=== PATIENT | male | born 1945 | race Caucasian/White ===

== ENCOUNTER 2017-02-19 07:39 | Day surgery (SDC) | payer MEDICARE ==
[2017-02-13 15:46] VITALS: BMI 26.2
[~2017-02-19 07:39] MED LIST: LACTATED RINGERS 1,000 ML IV SCH
[2017-02-19 08:06] VITALS: TEMP 97.8
[2017-02-19] MEDS ORDERED: LIDOCAINE 1% 20 ML VIAL (10MG/ML) FOR IV START INTRADERMA ONE (08:06)
[2017-02-19] MEDS ORDERED: PROPOFOL 10 MG/ML 20 ML VIAL IV ONE (08:29)
[2017-02-19] MEDS ORDERED: LIDOCAINE 1% INJ 10MG/ML (20 ML MDV) ONE (08:29)
--- NOTE | 2017-02-19 08:37 | P.GSHP ---
History of Present Illness H&P Date: 02/19/17 Chief Complaint: Colon cancer This is a 71-year-old male who has. History of colon cancer. Patient presents today for colonoscopy. He's had a previous low anterior section. - Constitutional Constitutional: Reports as per HPI Past Medical History Past Medical History: Cancer, GERD/Reflux, Hyperlipidemia, Hypertension, Osteoarthritis (OA), Prostate Disorder, Sleep Apnea/CPAP/BIPAP Additional Past Medical History / Comment(s): CHRONIC FATIGUE SYNDROME. COLON POLYPS. MELANOMA, SKIN CA, COLON CA DX ,CONSTIPATION, History of Any Multi-Drug Resistant Organisms: None Reported Past Surgical History: Bowel Resection, Orthopedic Surgery Additional Past Surgical History / Comment(s): MELANOMA REMOVED RIGHT SHOULDER. RIGHT INNER EAR RECONSTRUCTION. BILATERAL ROTATOR CUFF REPAIR. laparoscopic left colectomy with lysis of adhesions 02-23-15, PORT A CATH INSERTED AND REMOVED Past Anesthesia/Blood Transfusion Reactions: No Reported Reaction Additional Past Anesthesia/Blood Transfusion Reaction / Comment(s): NEVER HAS HAD A BLOOD TRANSFUSION Past Psychological History: No Psychological Hx Reported Smoking Status: Never smoker Past Alcohol Use History: Rare Past Drug Use History: None Reported - Past Family History Mother Family Medical History: Deep Vein Thrombosis (DVT) Father Family Medical History: Cancer Additional Family Medical History / Comment(s): LUNG CA Medications and Allergies Home Medications Medication Instructions Recorded Confirmed Type Multivitamins, Thera [Multivitamin] 1 tab PO DAILY 02/05/15 02/13/17 History Omeprazole [PriLOSEC] 20 mg PO AC-BID 02/05/15 02/13/17 History Simvastatin [Zocor] 40 mg PO HS 02/05/15 02/13/17 History Tamsulosin [Flomax] 0.4 mg PO HS 02/05/15 02/13/17 History amLODIPine BESYLATE/BENAZEPRIL 1 tab PO QAM 02/05/15 02/13/17 History [Amlodipine-Benazepril 5-10 mg] buPROPion SR [Wellbutrin Sr] 150 mg PO BID 02/05/15 02/13/17 History Indomethacin [Indocin] 50 mg PO BID 02/08/15 02/13/17 History Gabapentin [Neurontin] 200 mg PO BID 11/02/15 02/13/17 History Lactulose 15 ml PO DIRECTED PRN 11/02/15 02/13/17 History Cholecalciferol [Vitamin D3] 4,000 unit PO DAILY 02/13/17 02/13/17 History Cyanocobalamin (Vitamin B-12) 1,000 mcg PO DAILY 02/13/17 02/13/17 History [Vitamin B-12] Donepezil HCl [Aricept] 5 mg PO DAILY 02/13/17 02/13/17 History Allergies Allergy/AdvReac Type Severity Reaction Status Date / Time No Known Allergies Allergy Verified 02/19/17 07:49 Surgical - Exam Vital Signs Temp Pulse Resp BP Pulse Ox 97.8 F 79 16 123/67 98 02/19/17 08:05 02/19/17 08:05 02/19/17 08:05 02/19/17 08:05 02/19/17 08:05 - General well developed, no distress - Eyes PERRL - ENT normal pinna - Neck no masses - Respiratory normal expansion - Cardiovascular Rhythm: regular - Abdomen Abdomen: soft, non tender Assessment and Plan Plan: History of colon cancer. We'll perform colonoscopy.
--- NOTE | 2017-02-19 08:48 | P.OP ---
Date of Procedure: 02/19/17 Preoperative Diagnosis: History of colon cancer Postoperative Diagnosis: Normal colon status post low anterior resection Procedure(s) Performed: Colonoscopy Anesthesia: MAC Surgeon: Alber Shah Pathology: none sent Condition: stable Disposition: PACU Description of Procedure: PROCEDURE: The patient was placed on the endoscopy table in the lateral position. Digital rectal examination was performed which revealed no abnormalities. The prostate was symmetrical without nodules. Flexible colonoscope was then placed in the patient's anus and passed throughout the entire colon. The ileocecal valve was visualized. The cecum, ascending, transverse, descending colon was normal. The patient had a previous colorectal anastomosis. The anastomosis was without evidence of inflammation. There is no evidence of any recurrent tumors. The rectum appeared normal. Scope was withdrawn for patient.
[2017-02-19 08:56] VITALS: RESP 18
[2017-02-19 09:14] VITALS: BP 109/73; PULSE 69
== END 2017-02-19 09:27 | disposition home or self-care (01) ==
LOC: ORWHC2ENDO 07:39
PROVIDERS: ATTEND Surgery
DX: Z12.11 Encounter for screening for malignant neoplasm of colon (principal); Z85.038 Personal history of other malignant neoplasm of large intestine; Z90.49 Acquired absence of other specified parts of digestive tract; K21.9 Gastro-esophageal reflux disease without esophagitis; E78.5 Hyperlipidemia, unspecified; I10 Essential (primary) hypertension; M19.90 Unspecified osteoarthritis, unspecified site; N42.9 Disorder of prostate, unspecified; G47.30 Sleep apnea, unspecified; Z85.820 Personal history of malignant melanoma of skin; Z79.899 Other long term (current) drug therapy
CPT/HCPCS: J2001; J2704; G0105; 45378

== ENCOUNTER → 2017-10-22 | Outpatient (CLI) | payer MEDICARE ==
[2017-10-22 09:16] LABS: Blood Urea Nitrogen 21 mg/dL (9-20)
--- NOTE | 2017-10-22 10:26 | CT ---
EXAMINATION TYPE: CT abdomen pelvis w con DATE OF EXAM: 10/22/2017 COMPARISON: 10/22/2016 HISTORY: 72 year-old male follow-up of colon CA, last chemotherapy 09/05/2015 TECHNIQUE: Contiguous axial scanning of the abdomen and pelvis following administration of 100 ml Omn ipaque 300 IV contrast. Delayed images through the kidneys and coronal/sagittal reconstructions perf ormed. CT DLP: 1278.0 mGycm Automated exposure control for dose reduction was used. FINDINGS: Heart is normal size without pericardial effusion. Mild dependent atelectasis posterior lung bases. There is some subtle 8 mm nodularity along the left lateral wall of the distal esophagus, axial image 8 and coronal image 49 which could represent some mucosal redundancy. Close follow-up recommended ve rsus direct visualization. No focal liver lesion or biliary ductal dilatation. Portal venous system is patent. Redemonstrated 2 cm gallstone. No abnormal gallbladder distention. Adrenal glands, kidneys, spleen, and pancreas within normal limits. No dilated small bowel, free fluid, or free air. No mesenteric or retroperitoneal lymphadenopathy. Oral contrast progressed to the hepatic flexure. There is moderate stool burden with a evidence of co lonic resection and re-anastomosis along the proximal sigmoid. No pericolonic inflammatory change. 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 This is unchanged from 10/22/2016. Refer to axial image 34 and coronal image 45. Bladder is urine distended. Prostate gland is enlarged measuring 5.7 cm wide with heterogeneous enhan cement. More focal area of enhancement along the left paramedian peripheral zone measuring 1.1 cm rufus teo 8 mm, previously. No abnormal fluid collection in the pelvis or pelvic lymphadenopathy. Bones: Patchy areas of sclerosis within the bilateral pubic bones. Heterogeneous sclerosis within the right iliac bone are unchanged. Degenerative changes at both hips and advanced degenerative changes through out the spine with a grade 2 anterolisthesis at L4-L5 secondary to hypertrophic facet arthropathy. En dplate sclerosis at L2-L3 on a degenerative basis. DISH within the lower thoracic spine. No osseous d estructive process seen. Baastrup's disease. IMPRESSION: 1. EVIDENCE OF PRIOR RESECTION AND REANASTOMOSIS ALONG THE PROXIMAL SIGMOID. THERE IS MODERATE STOOL BURDEN. NO SUSPICIOUS MASS OR LYMPHADENOPATHY TO SUGGEST METASTATIC DISEASE. 2. STABLE PATCHY SCLEROSIS WITHIN THE PUBIC BONES AND RIGHT ILIAC BONE. GIVEN THE RELATIVE LONG-TERM STABILITY, FINDINGS SUGGEST TREATED OSSEOUS METASTASES RATHER THAN ACTIVE METASTATIC DISEASE. CLINICA LLY CORRELATE. 3. A SUBTLE 8 MM AREA OF NODULARITY ALONG THE LEFT LATERAL WALL OF THE DISTAL ESOPHAGUS COULD REPRESE NT SOME MUCOSAL REDUNDANCY. CLOSE FOLLOW-UP VERSUS DIRECT VISUALIZATION TO EXCLUDE A SMALL EARLY NEOP LASM. 4. HETEROGENEOUSLY ENHANCING AND ENLARGED PROSTATE GLAND COULD REFLECT BPH. HOWEVER, GIVEN MORE FOCAL 1.1 CM ENHANCEMENT IN THE LEFT PARAMEDIAN PERIPHERAL ZONE, CORRELATE TO EXCLUDE AN INDOLENT FOCUS OF PROSTATE CANCER. 5. 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
== END | disposition home or self-care (01) ==
LOC: RADCTMAIN 08:36
PROVIDERS: ATTEND Internal Medicine Hematology & Oncology
DX: C18.7 Malignant neoplasm of sigmoid colon (principal); M89.8X8 Other specified disorders of bone, other site; N40.0 Benign prostatic hyperplasia without lower urinary tract symptoms; K80.20 Calculus of gallbladder without cholecystitis without obstruction; I72.2 Aneurysm of renal artery
CPT/HCPCS: 82565; 84520; 74177; 36415; Q9967

== ENCOUNTER 2017-11-03 06:54 | Day surgery (SDC) | payer MEDICARE ==
[2017-10-30 09:15] VITALS: BMI 27.1
[~2017-11-03 06:54] MED LIST changes: +LIDOCAINE 1% 20 ML VIAL (10MG/ML) FOR IV START INTRADERMA PRN
[2017-11-03 07:13] VITALS: TEMP 97.7
[2017-11-03] MEDS ORDERED: LACTATED RINGERS 1,000 ML IV ONE (07:13)
[2017-11-03] MEDS ORDERED: LIDOCAINE 1% INJ 10MG/ML (20 ML MDV) ONE (07:37)
[2017-11-03] MEDS ORDERED: PROPOFOL 10 MG/ML 20 ML VIAL IV ONE (07:37)
--- NOTE | 2017-11-03 07:54 | P.GSHP ---
History of Present Illness H&P Date: 11/03/17 Chief Complaint: Possible esophagitis Asst. 72-year-old male with a history of colon cancer. Patient underwent routine screening CAT scan. He's found to have nodularity of the distal esophagus. He presents today for direct visualization of his esophagus. Past Medical History Past Medical History: Cancer, GERD/Reflux, Hyperlipidemia, Hypertension, Neurologic Disorder, Osteoarthritis (OA), Prostate Disorder, Sleep Apnea/CPAP/ BIPAP Additional Past Medical History / Comment(s): CHRONIC FATIGUE SYNDROME, COLON POLYPS, HX OF COLON CANCER (RESECTION & CHEMOTHERAPY 2014), MELANOMA SKIN CA, CONSTIPATION, ENLARGED PROSTATE., NEUROPATHY IN FINGERS & FEET. History of Any Multi-Drug Resistant Organisms: None Reported Past Surgical History: Bowel Resection, Orthopedic Surgery Additional Past Surgical History / Comment(s): MELANOMA RIGHT SHOULDER. RIGHT INNER EAR RECONSTRUCTION. BILATERAL ROTATOR CUFF REPAIR. laparoscopic left colectomy with lysis of adhesions 02-23-15, PORT A CATH INSERTED AND REMOVED Past Anesthesia/Blood Transfusion Reactions: No Reported Reaction Additional Past Anesthesia/Blood Transfusion Reaction / Comment(s): . Past Psychological History: No Psychological Hx Reported Smoking Status: Never smoker Past Alcohol Use History: None Reported Past Drug Use History: None Reported - Past Family History Mother Family Medical History: Deep Vein Thrombosis (DVT) Father Family Medical History: Cancer Additional Family Medical History / Comment(s): LUNG CA Medications and Allergies Home Medications Medication Instructions Recorded Confirmed Type Multivitamins, Thera [Multivitamin] 1 tab PO DAILY 02/05/15 11/03/17 History Omeprazole [PriLOSEC] 20 mg PO AC-BID 02/05/15 11/03/17 History Simvastatin [Zocor] 40 mg PO QAM 02/05/15 11/03/17 History Tamsulosin [Flomax] 0.4 mg PO HS 02/05/15 11/03/17 History amLODIPine BESYLATE/BENAZEPRIL 1 tab PO QAM 02/05/15 11/03/17 History [Amlodipine-Benazepril 5-10 mg] buPROPion SR [Wellbutrin Sr] 150 mg PO BID 02/05/15 11/03/17 History Indomethacin [Indocin] 50 mg PO BID 02/08/15 11/03/17 History Gabapentin [Neurontin] 200 mg PO BID 11/02/15 11/03/17 History Lactulose 1 dose PO DAILY PRN 11/02/15 11/03/17 History Memantine HCl/Donepezil HCl 1 each PO DAILY 10/30/17 11/03/17 History [Namzaric 28 mg-10 mg Capsule] Vitamin B Complex 1 each PO DAILY 10/30/17 11/03/17 History Allergies Allergy/AdvReac Type Severity Reaction Status Date / Time No Known Allergies Allergy Verified 11/03/17 07:06 Surgical - Exam Vital Signs Temp Pulse Resp BP Pulse Ox 97.7 F 70 18 128/71 96 11/03/17 07:11 11/03/17 07:11 11/03/17 07:11 11/03/17 07:11 11/03/17 07:11 - General well developed, no distress - Eyes PERRL - ENT normal pinna - Neck no masses - Respiratory normal expansion - Cardiovascular Rhythm: regular - Abdomen Abdomen: soft, non tender Assessment and Plan Assessment: History of colon cancer Computed tomography scan findings of distal esophageal mucosal irregularity We'll perform EGD
--- NOTE | 2017-11-03 08:07 | P.OP ---
Date of Procedure: 11/03/17 Preoperative Diagnosis: Esophagitis Postoperative Diagnosis: Small sliding hiatal hernia Esophagitis Procedure(s) Performed: EGD Anesthesia: MAC Surgeon: Alber Shah Pathology: other (Antrum, esophagus) Condition: stable Disposition: PACU Description of Procedure: The patient's placed on the endoscopy table in the lateral position. He received IV sedation. The gastroscope placed oropharynx and passed in the esophagus and the stomach. Scope was placed through the pylorus. The first and second portion of the duodenum appeared normal. The scope was then brought back the antrum this was mildly inflamed. A biopsies performed. The scope was unretroflexed and remainder of the stomach appeared normal. There was a small sliding hiatal hernia. The GE junction was at 38 cm.. The distal esophagus appeared inflamed this area is biopsied. The proximal esophagus appeared normal. Scope was withdrawn for patient.
[2017-11-03 08:31] VITALS: BP 115/71; PULSE 66; RESP 18
== END 2017-11-03 08:37 | disposition home or self-care (01) ==
LOC: ORWHC2ENDO 06:54
PROVIDERS: ATTEND Surgery
DX: K29.50 Unspecified chronic gastritis without bleeding (principal); K21.0 Gastro-esophageal reflux disease with esophagitis; K44.9 Diaphragmatic hernia without obstruction or gangrene; Z85.038 Personal history of other malignant neoplasm of large intestine; Z90.49 Acquired absence of other specified parts of digestive tract; Z92.21 Personal history of antineoplastic chemotherapy; E78.5 Hyperlipidemia, unspecified; I10 Essential (primary) hypertension; M19.90 Unspecified osteoarthritis, unspecified site; G47.33 Obstructive sleep apnea (adult) (pediatric); R53.82 Chronic fatigue, unspecified; N40.0 Benign prostatic hyperplasia without lower urinary tract symptoms; G62.9 Polyneuropathy, unspecified; Z85.820 Personal history of malignant melanoma of skin; Z79.899 Other long term (current) drug therapy
CPT/HCPCS: 88305; 88342; 43239; J2001; J2704

== ENCOUNTER → 2018-10-29 | Outpatient (CLI) | payer MEDICARE ==
[2018-10-29 08:26] LABS: Blood Urea Nitrogen 22 mg/dL (9-20)
--- NOTE | 2018-10-29 15:52 | CT ---
EXAMINATION TYPE: CT abdomen pelvis w con DATE OF EXAM: 10/29/2018 COMPARISON: 10/22/2017 HISTORY: Colon CA CT DLP: 1457.4 mGycm CONTRAST: CT scan of the abdomen and pelvis is performed with Oral Contrast and with IV Contrast, patient injec gerardo with 100 mL of Isovue 300. FINDINGS: LUNG BASES-: No visible nodule. No infiltrate. LIVER/GB: Noncalcified gallstones identified. No space occupying hepatic lesion. Biliary tree is o f normal caliber. PANCREAS: No inflammation. No distinct mass. SPLEEN: No splenic enlargement. No lesion seen. ADRENALS: No nodule. No thickening. KIDNEYS/BLADDER: No hydronephrosis. No nephrolithiasis. No distinct renal mass. Urinary bladder g rossly unremarkable. BOWEL: Moderate fecal stasis seen throughout the colon. No evidence for a recurrent or residual mass. No evidence for small bowel obstruction. No inflammatory process seen. Postsurgical changes transver se colon. GENITAL ORGANS: Prostate gland enlargement and heterogeneity. LYMPH NODES: No greater than 1cm abdominal or pelvic lymph nodes are appreciated. AORTA: No significant abnormality. OSSEOUS STRUCTURES: Severe degenerative change lumbar spine with spinal stenosis noted at multiple le vels. OTHER: No significant additional abnormality is seen. IMPRESSION: 1. No evidence for recurrent or residual disease. No evidence for metastatic disease. 2. Prostate gland enlargement. 3. Noncalcified gallstones #4 spinal stenosis at multiple levels.
== END | disposition home or self-care (01) ==
LOC: RADCTMAIN 07:04
PROVIDERS: ATTEND Internal Medicine Hematology & Oncology
DX: C18.7 Malignant neoplasm of sigmoid colon (principal); K80.20 Calculus of gallbladder without cholecystitis without obstruction; N40.0 Benign prostatic hyperplasia without lower urinary tract symptoms
CPT/HCPCS: 82565; 84520; 74177; 36415; Q9967